=== PATIENT | male | born 1965 | race Caucasian/White ===

== ENCOUNTER 2024-11-04 09:35 | Inpatient (IN) ==
--- NOTE | 2024-11-04 10:14 | Emergency Department Note ---
Impression & Plan Bilateral pulmonary embolism, DVT (deep venous thrombosis) ED Provider Note NAME: KEENA ZHU AGE: 58 SEX: M : 1965 ARRIVES VIA: Walk-In INFORMANT: Patient, ED PROVIDER(S): Johny Tipton DO CHIEF COMPLAINT: Leg swelling HPI: The patient is a 58-year-old male who presented to the emergency department for an evaluation of leg swelling. The patient noticed left leg swelling and calf pain over the course of the last several days. He went [facility] and was sent to the emergency department for possible DVT. He denies having any near syncope. He denies having any chest pain or difficulty breathing. The patient has no history of venous thromboembolic disease. He has no history of cancer as far as he knows. He does not take any medications currently. ROS: See above HPI for pertinent positives & negatives. A total of 10 systems reviewed and were otherwise negative. PAST MEDICAL HISTORY: See Below PAST SURGICAL HISTORY: See Below FAMILY HISTORY: See Below SOCIAL HISTORY: See Below HOME MEDICATIONS: See Below ALLERGIES: See Below VITALS: See Below PHYSICAL EXAMINATION: GENERAL: Patient is awake alert in no acute distress patient is resting comfortably and showing no signs of anxiety EYES: The conjunctivae are clear. The pupils are round and reactive. EARS, NOSE, MOUTH AND THROAT: The nose is without any evidence of any deformity. NECK: The neck is nontender and supple. RESPIRATORY: Normal respiratory effort is noted there is no evidence of wheezing rhonchi or rales CARDIOVASCULAR: Tachycardic and regular heart sounds were noted to auscultation. There is no definite murmur. GASTROINTESTINAL: The abdomen is soft. Abdomen is nontender. MUSCULOSKELETAL/EXTREMITIES: There is no evidence of gross deformity full range of motion is noted in the hips and shoulders. SKIN: There is calf swelling and tightness noted on the left leg. There is tenderness in the left popliteal fossa. Skin is warm and dry. NEUROLOGIC: Patient is awake alert and oriented x3 MEDICAL DECISION MAKING: The patient is a 58-year-old male who presented to the emergency department for an evaluation of leg swelling. The patient noticed leg swelling over the course of the last several days. He was seen by his primary care physician but referred to the emergency department for an ultrasound. The patient was found to be tachycardic. He appeared to have some degree of hypoxia which was borderline but occurred with exertion. For this reason further laboratory and radiographic studies were obtained. The patient was noted to have filling defects on CT of the chest so heparin was ordered. I discussed the patient's laboratory and radiographic studies with him. [facility] have agreed to evaluate the patient in the emergency department for further management and disposition. Triage Nursing notes reviewed. Prior medical records reviewed Vital Signs: reviewed and remarkable for tachycardia. Differential diagnosis: DVT, musculoskeletal, infection, joint effusion, trauma, lymphedema, idiopathic, CHF, as well as other pathologies. ER treatment provided: See below Diagnostics interpreted by me: ECG: EKG was obtained in the emergency department. My interpretation is sinus tachycardia at 114 bpm. There was no ectopy. Nonspecific ST depression with T wave inversions were noted. No previous tracing was available. Cardiac Monitoring: An order was placed for continuous cardiac monitoring. The monitor shows a rate of 110 bpm with sinus rhythm. Laboratory studies: As stated above and show below. Imaging studies: See below. Radiographic imaging was reviewed by myself Consultation(s): I discussed this case with Dr. Farnsworth who is on-call for the [facility]. ED COURSE: Procedures: none Critical Care: I have personally spent greater than 35 minutes of critical care time in the direct management of this patient. This includes bedside care, interpretation of diagnostic studies, and testing, discussion with consultants, patient, and family members, and other required patient management activities. This 35 minutes is in excess of all separately billable procedures. Past Med/Surg History Problem List (Updated 11/04/24 @ 12:38 by Johny Tipton DO) DVT (deep venous thrombosis) (Acute) Bilateral pulmonary embolism (Acute) Social History Smoking Status: Never smoker Feels Safe at Home: Yes Allergies Allergies Allergy/AdvReac Type Severity Reaction Status Date / Time cat dander Allergy Unknown "chest Verified 11/04/24 12:17 tightness" dog dander Allergy Unknown "chest Verified 11/04/24 12:17 tightness" Home Meds Home Medications Medication Instructions Recorded Confirmed Glucosamine 1 tab PO DAILY 11/04/24 11/04/24 cholecalciferol (vitamin D3) 25 25 mcg PO DAILY 11/04/24 11/04/24 mcg (1,000 unit) tablet folic acid 1 mg tablet 1 mg PO DAILY 11/04/24 11/04/24 multivitamin with minerals 1 tab PO DAILY 11/04/24 11/04/24 Results & Data (ED) Vital Signs Vital Signs - 24 hr 11/04/24 09:43 Temperature 37 C Temperature Source Oral Pulse Rate 133 H Respiratory Rate 18 Respiratory Effort / Characteristics Non-Labored Respiratory Depth Normal Respiratory Pattern Regular Blood Pressure 125/84 Blood Pressure Mean 97 Pulse Oximetry 98 Oxygen Delivery Method Room Air Sepsis Recent Fever Within 48 Hours No Sepsis New/Unexplained Change in Mental Status N/A Sepsis Action Taken by Nursing No Action Required Home Medications Current Medication List: was personally reviewed by me Laboratory Data Attestation: I reviewed the patient's lab results. 11/04/24 10:17 11/04/24 10:17 Lab Results 11/04/24 11/04/24 Range/Units 10:17 10:19 WBC 9.24 (4.8-10.8) K/ul RBC 3.35 L (4.70-6.10) M/uL Hgb 13.5 L (14.0-18.0) g/dl POC Hgb 12.9 L (14.0-18.0) g/dl Hct 37.5 L (42.0-52.0) % POC Hct 38 L (42-52) % MCV 111.9 H (80.0-100.0) fL MCH 40.3 H (25.0-34.0) pg MCHC 36.0 (32.0-36.0) g/dL RDW Std Deviation 54.0 H (36.4-46.3) fL RDW Coeff of Toma 13.0 (11.5-14.5) % Plt Count 297 (130-400) K/uL MPV 8.9 L (9.4-12.4) fL Immature Gran % (Auto) 1.4 % Neut % (Auto) 62.2 % Lymph % (Auto) 21.2 % Morrison % (Auto) 13.9 % Eos % (Auto) 0.3 % Baso % (Auto) 1.0 % Neut # (Auto) 5.75 (1.40-6.50) K/uL Lymph # (Auto) 1.96 (1.20-3.40) K/uL Morrison # (Auto) 1.28 H (0.11-0.59) K/uL Eos # (Auto) 0.03 (0.00-0.50) K/uL Baso # (Auto) 0.09 (0.00-0.20) K/uL Immature Gran # (Auto) 0.13 (0.01-0.20) K/uL Polychromasia 1+ Macrocytosis Present PT 10.6 (9.0-12.0) Seconds INR 1.0 (0.9-1.1) APTT 25 (21-31) Seconds PTT Ratio 0.9 POC Sodium 139 (135-144) mmol/L Sodium 139 (136-145) mmol/L POC Potassium 3.4 (3.3-5.0) mmol/L Potassium 3.4 L (3.5-5.1) mmol/L POC Chloride 98 L (101-112) mmol/L Chloride 101 (98-107) mmol/L Carbon Dioxide 32 (21-32) mmol/L POC Total CO2 27 (24-31) mmol/L Anion Gap 6 (3-11) POC Anion Gap 17.0 (16-25) mmol/L POC BUN 8 (7-18) mg/dl BUN 9 (6-23) mg/dl Creatinine 0.60 (0.6-1.4) mg/dl POC Creatinine 0.6 (0.6-1.3) mg/dl Est Cr Clr Drug Dosing 126.7 ml/min eGFR 110.51 BUN/Creatinine Ratio 15.0 (10-20) Glucose 102 H (70-99(Fasting)) mg/dl POC Glucose (other) 103 H (70-99) mg/dl Calcium 8.6 (8.6-10.3) mg/dl POC Ioniz Calcium Bimal 1.10 L (1.12-1.32) mmol/l Iron 105 (35-175) mcg/dl TIBC 248 L (250-450) mcg/dl Transferrin 177 L (200-360) mg/dl Transferrin % Sat 42 (20-50) % Total Bilirubin 0.7 (0.2-1.0) mg/dl AST 41 H (13-39) U/L ALT 33 (7-52) U/L Alkaline Phosphatase 81 (34-104) U/L Troponin I High Sens 4.9 (0-20) pg/ml Total Protein 7.2 (6.0-8.3) gm/dl Albumin 3.2 L (3.4-5.0) gm/dl Globulin 4.0 (2.5-4.0) gm/dl Albumin/Globulin Ratio 0.8 L (0.9-2) Lipase 32 (11-82) U/L Vitamin B12 135 L (180-914) pg/ml Administered Medications Heparin Sodium/Dextrose (Heparin 96966 Unit/500 Ml D5w) 25,000 units in 500 mls @ 26 mls/hr IV .[id number] JESSICA; Protocol Stop: 11/05/24 09:00 Last Admin: 11/04/24 12:03 Dose: 1,300 units/hr, 26 mls/hr Documented By: LAKESHA Co-signed By: MINE Discontinued Medications Heparin Sodium (Porcine) (Heparin Sod (Porcine) 1000 Unit/Ml) 1 units IV NOW ONE Stop: 11/04/24 10:50 Last Admin: 11/04/24 12:03 Dose: 6,000 units Documented By: CEF Co-signed By: MINE Heparin Sodium/Dextrose (Heparin Iv Adult Wt-Based Standard W/ Initial Bolus Protocol) 1 each IV NOW STA; Protocol Stop: 11/04/24 10:34 Last Admin: 11/04/24 12:22 Dose: Not Given Documented By: CEF Ioversol (Optiray 320 125ml) 119 ml IV ONCE ONE Stop: 11/04/24 10:27 Last Admin: 11/04/24 10:26 Dose: 119 ml Documented By: TYLER Nicotine (Nicotine 21 Mg/24 Hr Tdsy) 1 patch TD NOW STA Stop: 11/04/24 12:20 Last Admin: 11/04/24 12:51 Dose: 1 patch Documented By: CEF Imaging Data Attestation: I personally reviewed and interpreted this imaging study as follows: My Impression: CT of the chest was obtained in the emergency department. My interpretation is bilateral filling defects consistent with PE. Final report below. Radiologist's Impression: Venous Doppler Study 11/04/24 10:07 LEFT LOWER EXTREMITY VENOUS DOPPLER HISTORY: [facility]: CT chest of same day FINDINGS: Subcutaneous edema. Extensive occlusive and partially occlusive acute appearing deep venous thrombi are noted within the lower extremity which involves the common femoral, superficial femoral, popliteal, posterior tibial, peroneal and anterior tibial veins. IMPRESSION: Extensive acute appearing DVT. ACT 112: Negative or not required by law. Electronically signed by: Howie Youngblood M.D. 11/04/2024 11:51 AM Chest CTA 11/04/24 10:10 CT angio chest PE protocol CT DOSE: 672.79 mGy.cm HISTORY: 58 years-old Male with PE. Acute shortness of breath TECHNIQUE: Multiple CTA images of the chest were obtained after the intravenous administration of 119 ml Optiray. Coronal and sagittal MIPS were obtained from the axial data set and were submitted for review. All measurements were obtained according to NASCET criteria. A dose lowering technique was utilized adhering to the principles of ALARA. COMPARISON: None. FINDINGS: CTA: Heart is upper limits of normal in size. No pericardial effusion. Normal thoracic aorta. Segmental and subsegmental pulmonary emboli are seen bilaterally, most pronounced in the left lung. Mild straightening of the intraventricular septum. No sagittal pulmonary embolus. CT CHEST: Unremarkable thyroid. No lymphadenopathy. No pneumothorax, pleural effusion or airspace consolidation/pulmonary infarct. There are no suspicious pulmonary nodules or masses. Minimal linear subpleural subsegmental consolidation within the lateral right midlung on image 102 series 4 suggestive of atelectasis versus scarring. Central airways are patent. Hepatic steatosis with hepatomegaly. Calcified granuloma of the hepatic dome. No acute fracture. IMPRESSION: 1. Bilateral segmental and subsegmental pulmonary emboli with evidence of right heart strain. 2. No pleural effusion or acute pulmonary infarct. ACT 112: Negative or not required by law. The above report was generated using voice recognition software. It may contain grammatical, syntax or spelling errors. Electronically signed by: Howie Youngblood M.D. 11/04/2024 10:55 AM Discharge Plan Visit Data Chief Complaint: Leg Injury/Pain Stated Complaint: L LEG PAIN/CALF KNEE ED Provider: Johny Tipton Discharge Problem: Bilateral pulmonary embolism, DVT (deep venous thrombosis) Patient Disposition: Being Evaluated by Hospitalist Forms Stand Alone Forms: [facility] Prescriptions Prescriptions: No Action folic acid 1 mg Tablet 1 mg PO DAILY multivitamin with minerals Tablet 1 tab PO DAILY cholecalciferol (vitamin D3) 25 mcg (1,000 unit) Tablet 25 mcg PO DAILY Glucosamine 1 tab PO DAILY Rx Instructions: strength not listed on list from [facility] Referrals Referrals: PCP,NO [Physician] - Discharge Problem: DVT (deep venous thrombosis) Qualifiers: DVT location: lower extremity Affected thrombotic vein of extremity: femoral C hronicity: acute Laterality: left Qualified Code(s): I82.412 - Acute embolism and thrombosis of left femoral vein
[2024-11-04] MEDS: OPTIRAY 320 125ml IV ONE (10:26)
[2024-11-04 10:31] LABS: iSTAT Creatinine 0.6 mg/dl (0.6-1.3); iSTAT Hemoglobin 12.9 g/dl (14.0-18.0); iSTAT Ionized Calcium 1.1 mmol/l (1.12-1.32); iSTAT Potassium 3.4 mmol/L (3.3-5.0)
[2024-11-04 10:48] LABS: Basophils # (auto) 0.09 K/uL (0.00-0.20); Eosinophils # (auto) 0.03 K/uL (0.00-0.50); Eosinophils % (auto) 0.3 %; Hematocrit (blood only) 37.5 % (42.0-52.0); Hemoglobin 13.5 g/dl (14.0-18.0); Immature Granulocytes # (auto) 0.13 K/uL (0.01-0.20); Immature Granulocytes % (auto) 1.4 %; Lymphocytes # (auto) 1.96 K/uL (1.20-3.40); Lymphocytes % (auto) 21.2 %; Mean Corpuscular Hemoglobin 40.3 pg (25.0-34.0); Mean Corpuscular Volume 111.9 fL (80.0-100.0); Mean Platelet Volume 8.9 fL (9.4-12.4); Monocytes # (auto) 1.28 K/uL (0.11-0.59); Monocytes % (auto) 13.9 %; Neutrophils # (auto) 5.75 K/uL (1.40-6.50); Neutrophils % (auto) 62.2 %; Platelet Count 297 K/uL (130-400); Red Blood Count 3.35 M/uL (4.70-6.10); White Blood Count 9.24 K/ul (4.8-10.8)
[2024-11-04 10:55] LABS: Albumin Globulin Ratio 0.8 (0.9-2); Albumin Level 3.2 gm/dl (3.4-5.0); Bilirubin,Total 0.7 mg/dl (0.2-1.0); Calcium 8.6 mg/dl (8.6-10.3); Creatinine Clr Calc Pharmacy 126.7 ml/min; Potassium 3.4 mmol/L (3.5-5.1); Total Protein 7.2 gm/dl (6.0-8.3)
--- NOTE | 2024-11-04 10:56 | CT Scan Report ---
CT angio chest PE protocol CT DOSE: 672.79 mGy.cm HISTORY: 58 years-old Male with PE. Acute shortness of breath TECHNIQUE: Multiple CTA images of the chest were obtained after the intravenous administration of 119 ml Optiray. Coronal and sagittal MIPS were obtained from the axial data set and were submitted for review. All measurements were obtained according to NASCET criteria. A dose lowering technique was u tilized adhering to the principles of ALARA. COMPARISON: None. FINDINGS: CTA: Heart is upper limits of normal in size. No pericardial effusion. Normal thoracic aorta. Segmental an d subsegmental pulmonary emboli are seen bilaterally, most pronounced in the left lung. Mild straight ening of the intraventricular septum. No sagittal pulmonary embolus. CT CHEST: Unremarkable thyroid. No lymphadenopathy. No pneumothorax, pleural effusion or airspace consolidation /pulmonary infarct. There are no suspicious pulmonary nodules or masses. Minimal linear subpleural mosley bsegmental consolidation within the lateral right midlung on image 102 series 4 suggestive of atelect asis versus scarring. Central airways are patent. Hepatic steatosis with hepatomegaly. Calcified granuloma of the hepatic dome. No acute fracture. IMPRESSION: 1. Bilateral segmental and subsegmental pulmonary emboli with evidence of right heart strain. 2. No pleural effusion or acute pulmonary infarct. ACT 112: Negative or not required by law. The above report was generated using voice recognition software. It may contain grammatical, syntax o r spelling errors. Electronically signed by: Howie Youngblood M.D. 11/04/2024 10:55 AM
[2024-11-04 11:00] LABS: Troponin I High Sensitivity 4.9 pg/ml (0-20)
[2024-11-04 11:04] LABS: Partial Thromboplastin Ratio 0.9; Partial Thromboplastin Time 25 Seconds (21-31); Prothrombin Time 10.6 Seconds (9.0-12.0)
[2024-11-04 11:32] LABS: Macrocytosis Present; Polychromasia 1+
--- NOTE | 2024-11-04 11:45 | History & Physical Report ---
Date of Service November 04, 2024 Assessment & Plan (1) Bilateral pulmonary embolism: Plan: Unprovoked DVT, bilateral PE Lower extremity Dopplers pending, suspect left leg DVT due to 1 week of left calf pain and swelling No hypotension, no saddle PE is noted ? Radiographic evidence of right heart strain. TTE ordered. Troponin is normal Continue heparin. Will transition to Eliquis 11/05/2024, pulmonary transition to loading dose 10 mg twice daily ordered and heparin to be discontinued at 9 AM if otherwise doing well Patient with tobacco use otherwise no clear provoking factors. Will need to be on anticoagulation for at minimum 3 months. No malignancy noted on CTA of the chest. No melena/hematochezia. Patient is scheduled for outpatient colonoscopy for colon cancer screening and recommend that he keep this Tobacco Use -Nicotine patch PRN Mild Macrocytic Anemia - Hgb 13.5, no bleeding/melena - Macrocytoic. +etoh use. thiamine/folic acid added. - Iron levels added -Outpatient colonoscopy is pending as noted No indication for transfusion DDx includes EtOH induced DVT PPx: anticoagulated Diet: Regular Dispo: M/T CODE: Full Code History of Present Illness Primary Care Provider: [facility] [address] Michael is a 58yo M with 1 week of swelling/pain in the left calf, dyspnea, and exertional dyspnea + hypoxia and who is found to have bilateral PE with radiographic evidence of RHS. trop normal. No hypotension, no saddle PE. Michael is seen at bedside. Tyro a knot behind his knee and pain in the LEFT calf. Called the [place] and was recommended to come to the ER. No injury, no trauma. No recent travel or long car rides. No history of DVT/PE. No family history of VTE/PE. No chest pain, no chest pressure No swelling in the RIGHT leg +shortness of breath walking around but more limited by pain in his leg, dyspnea is minimal. No dyspnea at rest. No lightheadedness, dizziness. No fevers, chills, or night sweats. Had a cold for a few weeks and some congestion negative viral tests, no PNA. +PND +weight loss ~5lbs over 2 months Has not had a colonoscopy yet. No bloody/black BMs Is scheduling for colonoscopy with the [place] Meds: Takes no medications Reports chronic dry cough in , no other problems and no chronic medical problems NKDA Chew tobacco, 1can every 2 days. No cigarette use ETOH 3-5 drinks every 3-5 days. Periodic etoh free days with no withdrawal sx Full Code Home Medications Medication Instructions Recorded Confirmed Type Glucosamine 1 tab PO DAILY 11/04/24 11/04/24 History cholecalciferol (vitamin D3) 25 25 mcg PO DAILY 11/04/24 11/04/24 History mcg (1,000 unit) tablet folic acid 1 mg tablet 1 mg PO DAILY 11/04/24 11/04/24 History multivitamin with minerals 1 tab PO DAILY 11/04/24 11/04/24 History Past Med/Surg History Problem List (Updated 11/04/24 @ 11:49 by Cordell Starks MD) Bilateral pulmonary embolism Social History Smoking Status: Never smoker Feels Safe at Home: Yes Physical Exam Physical Exam: General: A&Ox3. NAD. Cooperative. HEENT: Atraumatic, normocephalic. Vision/hearing grossly intact. Poor dentition. Pulm: CTAB A&P. -wheezes, -rales, -rhonchi. Symmetrical chest rise. No increased work of breathing. No respiratory distress. Cardiac: RRR, -mrg. Radial pulses intact and symmetrical. Abdominal: Nontender, nondistended, soft. BS present. Ext: LLE edema, swelling, calf tenderness. Results & Data Results & Data Vital Signs (Past 12 Hours) Vital Signs Temp Pulse Resp BP Pulse Ox O2 Del Method 11/04/24 09:43 37 C 133 H 18 125/84 98 Room Air PG Care Time/CCT Total # of Minutes Spent Total Time Spent with Patient: Total time spent is greater than 50% in coordination of care (as documented) at patient's floor/unit and/or counseling patient: Coding Level of Care Code 50837 INT INP/OBS CARE 3/75MIN Diagnoses Bilateral pulmonary embolism I26.99
--- NOTE | 2024-11-04 11:52 | Ultrasound Report ---
LEFT LOWER EXTREMITY VENOUS DOPPLER HISTORY: [facility]: CT chest of same day FINDINGS: Subcutaneous edema. Extensive occlusive and partially occlusive acute appearing deep venous thrombi are noted within the lower extremity which involves the common femoral, superficial femoral, popliteal, posterior tibial, peroneal and anterior tibial veins. IMPRESSION: Extensive acute appearing DVT. ACT 112: Negative or not required by law. Electronically signed by: Howie Youngblood M.D. 11/04/2024 11:51 AM
[2024-11-04] MEDS: HEPARIN SOD (PORCINE) 1000 UNIT/ML IV ONE (12:03)
[2024-11-04] MEDS: HEPARIN 25000 UNIT/500 ML D5W 25,000 UNITS/500 ML BAG IV SCH (12:03)
[2024-11-04] MEDS: Heparin IV Adult Wt-Based Standard w/ INITIAL Bolus Protocol IV STA (12:22)
[2024-11-04] MEDS: NICOTINE 21 MG/24 HR TDSY TD STA (12:51)
--- NOTE | 2024-11-04 13:52 | XCELERA ---
[id number]
[2024-11-04] MEDS ORDERED: ACETAMINOPHEN 325 MG TAB PO PRN (14:43)
--- NOTE | 2024-11-04 15:29 | Electrocardiogram Report ---
Test Reason : Blood Pressure : */* mmHG Vent. Rate : 114 BPM Atrial Rate : 114 BPM P-R Int : 132 ms QRS Dur : 78 ms QT Int : 334 ms P-R-T Axes : 41 23 -13 degrees QTcB Int : 460 ms Sinus tachycardia Abnormal ECG No previous ECGs available Confirmed by Johny Farias ([id number]) on 11/04/2024 3:28:53 PM Referred By: Confirmed By: Johny Farias
[2024-11-04] MEDS: FOLIC ACID 1 MG TAB PO SCH (15:38)
[2024-11-04] MEDS: CYANOCOBALAMIN (B-12) 100 MCG TABLET PO SCH (15:38)
[2024-11-04 15:58] LABS: Ferritin 1032.5 ng/ml (8-388)
[2024-11-04 19:15] LABS: ANTI-Xa, UFH(UnfractionatedHep 0.36 IU/ml (0.3-0.7)
[2024-11-05 01:36] LABS: ANTI-Xa, UFH(UnfractionatedHep 0.28 IU/ml (0.3-0.7)
[2024-11-05 06:34] LABS: Basophils # (auto) 0.07 K/uL (0.00-0.20); Basophils % (auto) 1.1 %; Eosinophils # (auto) 0.09 K/uL (0.00-0.50); Eosinophils % (auto) 1.4 %; Hemoglobin 12.7 g/dl (14.0-18.0); Immature Granulocytes # (auto) 0.08 K/uL (0.01-0.20); Immature Granulocytes % (auto) 1.2 %; Lymphocytes # (auto) 2.08 K/uL (1.20-3.40); Lymphocytes % (auto) 32.3 %; Mean Corpuscular Hemoglobin 40.3 pg (25.0-34.0); Mean Corpuscular Hgb Conc 36.3 g/dL (32.0-36.0); Mean Corpuscular Volume 111.1 fL (80.0-100.0); Mean Platelet Volume 9.1 fL (9.4-12.4); Monocytes # (auto) 0.87 K/uL (0.11-0.59); Monocytes % (auto) 13.5 %; Neutrophils # (auto) 3.24 K/uL (1.40-6.50); Neutrophils % (auto) 50.5 %; Platelet Count 289 K/uL (130-400); RDW Coefficient of Variation 12.7 % (11.5-14.5); Red Blood Count 3.15 M/uL (4.70-6.10); White Blood Count 6.43 K/ul (4.8-10.8)
[2024-11-05 06:58] LABS: Macrocytosis Present
[2024-11-05 07:04] LABS: BUN Creatinine Ratio 10.6 (10-20); Calcium 8.2 mg/dl (8.6-10.3); Creatinine Clr Calc Pharmacy 161.7 ml/min; Potassium 3.2 mmol/L (3.5-5.1)
[2024-11-05 07:27] VITALS: O2SAT 94
[2024-11-05] MEDS: CHOLECALCIFEROL 25 MCG (1000 UNITS) TAB PO SCH (07:48)
[2024-11-05] MEDS: CEROVITE ADV FORMULA TAB PO SCH (07:48)
[2024-11-05] MEDS: GLUCOSAMINE SULFATE 500 MG CAP PO SCH (07:48)
[2024-11-05] MEDS: NICOTINE 21 MG/24 HR TDSY TD SCH (07:49)
[2024-11-05 08:46] LABS: ANTI-Xa, UFH(UnfractionatedHep 0.29 IU/ml (0.3-0.7)
[2024-11-05 08:51] LABS: Magnesium 1.8 mg/dl (1.7-2.4)
[2024-11-05] MEDS ORDERED: APIXABAN 5 MG TABLET PO SCH ×3 (09:00→21:00)
[2024-11-05] MEDS ORDERED: FOLIC ACID 1 MG TAB PO SCH (09:00)
[2024-11-05] MEDS: POTASSIUM CHLORIDE CRTAB 20 MEQ TABCR PO STA (09:28)
[2024-11-05] MEDS: CYANOCOBALAMIN (B-12) 500 MCG TABLET PO SCH (09:28)
[2024-11-05] MEDS: POTASSIUM CHLORIDE 20 MEQ/15 ML UDC PO STA ×2 (10:33→16:49)
[2024-11-05] MEDS: ENOXAPARIN 80 MG/0.8 ML SYR SQ SCH (10:33)
[2024-11-05 11:47] VITALS: RESP 16
--- NOTE | 2024-11-05 15:53 | Discharge Summary ---
Discharge Summary Date of Service date of admission - November 04, 2024 date of discharge - November 05, 2024 Principal Dx & Hospital Course #1 = Principal Diagnosis (1) Bilateral pulmonary embolism: Patient presented with left leg pain, swelling, and dyspnea on exertion. LLE venous duplex study was positive for extensive DVT throughout most of the left leg venous system. CTA chest showed b/l segmental and subsegmental pulmonary emboli. This VTE event would be considered unprovoked. He reported no recent travel, no recent surgery, no recent COVID infection, no family history of VTE, etc. Further, he has had no recent diagnosis of malignancy. Although the radiologist commented there was evidence of right heart strain on CTA chest the patient's echocardiogram did not show findings to support such. Further, high-sensitivity troponin was very low at 4.9. During his stay he never was hypoxic and never required supplemental O2. He was started on heparin infusion in the ER. On hospital day #2 we contacted the [place] pharmacy to see if DOACs were [place]. We did confirm that the [place] indeed [place] Eliquis. Thus, patient was asked to take Eliquis as follows - * Eliquis 10mg PO BID x 7 days, then - * Eliquis 5mg PO BID thereafter As it was the weekend the patient was given a 3-day supply of Eliquis by our pharmacy, and we were also able to secure him some Eliquis samples. He was counseled that he must follow[place]up with the [place] in [facility] to obtain ongoing prescriptions for the Eliquis. Given the severity of the LLE DVT, the unprovoked nature of the event, etc. the patient may need to take Eliquis life-long. Will defer that final decision to his outpatient providers. At minimum he will need 6 months of Rx. The patient will need to have routine cancer screenings to exclude occult malignancy as the cause of his VTE event. Consider colonoscopy, prostate ca testing, potentially EGD, potentially CT abd/pelvis, etc. in order to complete the work-up. The patient was counseled extensively to limit or to abstain from all forms of etoh in light of taking Eliquis. He was also asked to avoid NSAIDs. (2) DVT (deep venous thrombosis): Extensive DVT throughout the majority of the LLE venous system as noted Rx - Eliquis as above (3) B12 deficiency: Vitamin B12 level = 135 (normal >180) Recommended oral vitamin B12 1000mcg daily x 6 months Folic acid level was low-normal at 6.99 Recommend 1 month of folic acid 1mg daily (4) Alcohol dependence: Counseled to abstain from alcohol if at all possible in light of Eliquis usage, etc. f/u with PCP for ongoing efforts Could consider Naltrexone therapy (5) Tobacco dependence: Counseled to quit Smoking cessation handouts given Notes For Next Care Provider Medication Changes From Visit Eliquis 10mg BID x 7 days, then 5mg BID thereafter - potentially lifelong Vitamin B12 1000mcg daily x 6 months Folic acid 1mg daily x 1 month Admission HPI Per Admitting Provider Michael is a 58yo M with 1 week of swelling/pain in the left calf, dyspnea, and exertional dyspnea + hypoxia and who is found to have bilateral PE with radiographic evidence of right heart strain. trop normal. No hypotension, no saddle PE. Michael is seen at bedside. [place] a knot behind his knee and pain in the LEFT calf. Called the [place] and was recommended to come to the [place]. No injury, no trauma. No recent travel or long car rides. No history of DVT/PE. No family history of VTE/PE. No chest pain, no chest pressure No swelling in the RIGHT leg +shortness of breath walking around but more limited by pain in his leg, dyspnea is minimal. No dyspnea at rest. No lightheadedness, dizziness. No fevers, chills, or night sweats. Had a cold for a few weeks and some congestion negative viral tests, no PNA. +PND +weight loss ~5lbs over 2 months Has not had a colonoscopy yet. No bloody/black BMs Is scheduling for colonoscopy with the [place] Meds: Takes no medications Reports chronic dry cough in July, no other problems and no chronic medical problems NKDA Chew tobacco, 1can every 2 days. No cigarette use ETOH 3-5 drinks every 3-5 days. Periodic etoh free days with no withdrawal sx Full Code Discharge Exam gen - NAD, no signs of etoh withdrawal, no respiratory distress neck - no JVD mouth - MMM heart - RRR, s1 s2, no murmur lungs - CTA b/l abd - soft NT ND BS+ ext - left leg/calf is larger than right leg, trace to <1+ edema LLE vascular - pulses b/l feet 2+ psych - a/o x 3 Discharge Plan Discharge Items Patient Disposition: Home - Self-Care Reason For Visit: Shortness of breath Discharge Diagnosis: 1. bilateral pulmonary emboli 2. left leg extensive DVTs 3. vitamin B12 deficiency (level = 135) Activity: As commented below Activity Comment: No strenuous activities until cleared by your [place] family doctor Sexual Activity: Wait until after follow-up appointment Exercise/Sports: Wait until after follow-up appointment Non-emergency contact: Primary Care Provider Call non-emergency contact if: you have any medication questions and your symptoms worsen Follow-up/Referrals: [facility] [Primary Care Provider] - (see Dr Sheldon Contreras - [facility] - THIS WEEK) Diet: Regular Addtl Attending Provider Instructions: Mr Beverly, You were hospitalized due to the discovery of left leg DVT blood clots as well as blood clots in the lungs (pulmonary emboli). The pulmonary emboli blood clots originate in the leg and travel through the circulation. They then deposit themselves in the lungs. Once in the lungs they cannot travel anywhere else. The body naturally tries to dissolve the clots in the leg and lungs over time. To prevent the existing clots from getting worse and to prevent the development of NEW clots you will need to take oral blood thinner. Your blood thinner is ELIQUIS. You will have to take the ELIQUIS for at least 6 months, potentially life-long. At this time it is uncertain what caused the DVT and pulmonary emboli blood clots. Risk factors for DVT/pulmonary emboli include recent surgery, prolonged immobility (long plane ride, train ride, car ride OR immobility due to medical conditions), underlying cancer, underlying autoimmune diseases, recent COVID infection, genetic factors that you can inherit from your mother or father, and other diseases that cause inflammation throughout the body. It does not appear that you have any of these conditions, but the [place] will likely recommend additional testing in the near-future (upper endoscopy, colonoscopy, prostate blood test/PSA test, etc). It is important to avoid the following while taking Eliquis - * alcohol * anti-inflammatory medicines such as aspirin, motrin, ibuprofen, aleve, naprosyn IT IS OK to take [id number] tylenol as needed for aches/pains. Of note - we checked an echocardiogram and your heart function is normal. The blood clots have had no effect on your heart function. You will notice for a few weeks that you are short of breath doing activity. This is due to the blood clots of the lungs. The shortness of breath will gradually go away. The mild swelling in the left leg may linger for quite some time. In some cases of DVT blood clots the swelling never fully resolves. Recommendations - 1. Starting the evening of 11/05/24 (9-10pm or so) -- * take TWO 5mg tablets (total 10mg) of Eliquis twice daily * you will take 10mg twice daily x 7 days until the morning of 11/12/24 * after the initial 7 days you will LOWER the dose to 5mg twice daily; then stay on this dose unless otherwise instructed * we have provided a supply of Eliquis until the [place] system can get you a full month or longer (samples of Eliquis, as well as a 3-day supply from our pharmacy) 2. Take emfx-www-laqkzym vitamin B12 1000mcg (1mg) daily for 6 months 3. Please abstain from alcohol if at all possible 4. Contact the [place] in [place] this [place]07/24, to discuss getting an ongoing prescription for the Eliquis 5. Please talk to your [place] doctor about getting help with smoking cessation Additional instructions regarding Eliquis - Your DVT / pulmonary emboli blood clot condition is typically treated with an anticoagulant ("blood thinner"). Anticoagulants will thin your blood to help prevent new clots. * You should take your medication exactly as directed. * Never skip a dose. * Never take a double dose. If you miss a dose, take it as soon as you remember. Call your Primary Care doctor if you experience any of the following: * Swelling or Pain in your leg * Sudden, continuous pain deep in a muscle * Pain that worsens when you are active or when you stand still for a long time * Chest Pain * Sudden Shortness of Breath * Rapid or pounding heart beat * Fainting * Dizziness * Cough with blood or bloody sputum * Sweating more than normal * Bruises * Heavy or uncontrolled bleeding * Blood in your urine, stool or vomit * Black or tarry stools * Heavy nose bleeds Caring for Your Self at Home: * Avoid sitting, standing or lying down for long periods without moving your legs and feet * When traveling by car, stop to get out and move around at least once every 3 hours * On long airplane, train or bus rides, get up and move around when possible * If you can't get up, wiggle your toes and tighten your calves to keep your blood moving * When shaving please use an ELECTRIC SHAVER rather than a traditional razor; using an electric shaver has less risk of cuts and bleeding Follow-up - call the [place] [facility] in [place] on Tuesday 11/07 or Wednesday 11/08 to obtain your Eliquis; I will be [facility]ing your [facility] showing them the details of your hospital stay Return to [facility] if - * you have bleeding from any location as noted above * you have worsening shortness of breath * you have chest pains * you feel dizzy or lightheaded * any other concerns It was our pleasure caring for you! Pending Studies at Discharge: No Stand-Alone Forms: My [facility], Smoking Cessation Medications and DC Order Prescriptions: New Eliquis 5 mg tablet 5 mg PO DIRECTED Qty: 70 0RF Rx Instructions: 2 tabs PO BID x 7 days, then 1 tab PO BID thereafter. cyanocobalamin (vitamin B-12) 1,000 mcg tablet 1,000 mcg PO DAILY Qty: 30 5RF Rx Instructions: purchase [id number] Continued folic acid 1 mg Tablet 1 mg PO DAILY multivitamin with minerals Tablet 1 tab PO DAILY cholecalciferol (vitamin D3) 25 mcg (1,000 unit) Tablet 25 mcg PO DAILY Glucosamine 1 tab PO DAILY Rx Instructions: strength not listed on list from [place] Discharge Orders: Discharge Order (Routine); Ordered 11/05/24 Ordered By: Donnie Fuentes/Other Patient Handouts: Apixaban Oral Tablet, Understanding Deep Vein Thrombosis, Pulmonary Embolism, Smoking Get Help to Quit Admission Data Admit Date/Time: 11/04/24 12:03 Attending Provider: Donnie Ontiveros Admit Provider: Cordell Satrks Primary Care Provider: [facility] Other Providers: Cordell Starks Other Interventions: Discharge Summary Assessment (RN) Last Done: 11/05/24 16:23 Hospital Stay Data Procedures Performed Echocardiogram: EF 60-65%, normal LV wall motion; normal RV function; no pulmonary HTN; normal valve function Diagnostic Imagining Performed Venous Doppler Study 11/04/24 10:07 LEFT LOWER EXTREMITY VENOUS DOPPLER HISTORY: [facility]: CT chest of same day FINDINGS: Subcutaneous edema. Extensive occlusive and partially occlusive acute appearing deep venous thrombi are noted within the lower extremity which involves the common femoral, superficial femoral, popliteal, posterior tibial, peroneal and anterior tibial veins. IMPRESSION: Extensive acute appearing DVT. ACT 112: Negative or not required by law. Electronically signed by: Howie Youngblood M.D. 11/04/2024 11:51 AM Chest CTA 11/04/24 10:10 CT angio chest PE protocol CT DOSE: 672.79 mGy.cm HISTORY: 58 years-old Male with PE. Acute shortness of breath TECHNIQUE: Multiple CTA images of the chest were obtained after the intravenous administration of 119 ml Optiray. Coronal and sagittal MIPS were obtained from the axial data set and were submitted for review. All measurements were obtained according to NASCET criteria. A dose lowering technique was utilized adhering to the principles of ALARA. COMPARISON: None. FINDINGS: CTA: Heart is upper limits of normal in size. No pericardial effusion. Normal thoracic aorta. Segmental and subsegmental pulmonary emboli are seen bilaterally, most pronounced in the left lung. Mild straightening of the intraventricular septum. No sagittal pulmonary embolus. CT CHEST: Unremarkable thyroid. No lymphadenopathy. No pneumothorax, pleural effusion or airspace consolidation/pulmonary infarct. There are no suspicious pulmonary nodules or masses. Minimal linear subpleural subsegmental consolidation within the lateral right midlung on image 102 series 4 suggestive of atelectasis versus scarring. Central airways are patent. Hepatic steatosis with hepatomegaly. Calcified granuloma of the hepatic dome. No acute fracture. IMPRESSION: 1. Bilateral segmental and subsegmental pulmonary emboli with evidence of right heart strain. 2. No pleural effusion or acute pulmonary infarct. ACT 112: Negative or not required by law. The above report was generated using voice recognition software. It may contain grammatical, syntax or spelling errors. Electronically signed by: Howie Youngblood M.D. 11/04/2024 10:55 AM Pending Results Patient Have Any Pending Studies at Discharge: No Discharge Instructions Given to Patient (Per Discharging Provider) Mr Beverly, You were hospitalized due to the discovery of left leg DVT blood clots as well as blood clots in the lungs (pulmonary emboli). The pulmonary emboli blood clots originate in the leg and travel through the circulation. They then deposit themselves in the lungs. Once in the lungs they cannot travel anywhere else. The body naturally tries to dissolve the clots in the leg and lungs over time. To prevent the existing clots from getting worse and to prevent the development of NEW clots you will need to take oral blood thinner. Your blood thinner is ELIQUIS. You will have to take the ELIQUIS for at least 6 months, potentially life-long. At this time it is uncertain what caused the DVT and pulmonary emboli blood clots. Risk factors for DVT/pulmonary emboli include recent surgery, prolonged immobility (long plane ride, train ride, car ride OR immobility due to medical conditions), underlying cancer, underlying autoimmune diseases, recent COVID infection, genetic factors that you can inherit from your mother or father, and other diseases that cause inflammation throughout the body. It does not appear that you have any of these conditions, but the [facility] will likely recommend additional testing in the near-future (upper endoscopy, colonoscopy, prostate blood test/PSA test, etc). It is important to avoid the following while taking Eliquis - * alcohol * anti-inflammatory medicines such as aspirin, motrin, ibuprofen, aleve, naprosyn IT IS OK to take onkr-rla-yjcdoik tylenol as needed for aches/pains. Of note - we checked an echocardiogram and your heart function is normal. The blood clots have had no effect on your heart function. You will notice for a few weeks that you are short of breath doing activity. This is due to the blood clots of the lungs. The shortness of breath will gradually go away. The mild swelling in the left leg may linger for quite some time. In some cases of DVT blood clots the swelling never fully resolves. Recommendations - 1. Starting the evening of 11/05/24 (9-10pm or so) -- * take TWO 5mg tablets (total 10mg) of Eliquis twice daily * you will take 10mg twice daily x 7 days until the morning of 11/12/24 * after the initial 7 days you will LOWER the dose to 5mg twice daily; then stay on this dose unless otherwise instructed * we have provided a supply of Eliquis until the [facility] can get [facility] a full [facility] or longer (samples of Eliquis, as well as a 3-day supply from our pharmacy) 2. Take gghl-olc-dotmjyh vitamin B12 1000mcg (1mg) daily for 6 months 3. Please abstain from alcohol if at all possible 4. Contact the [place] in [place] this [place]07/24, to discuss getting an ongoing prescription for the Eliquis 5. Please talk to your [place] doctor about getting help with smoking cessation Additional instructions regarding Eliquis - Your DVT / pulmonary emboli blood clot condition is typically treated with an anticoagulant ("blood thinner"). Anticoagulants will thin your blood to help prevent new clots. * You should take your medication exactly as directed. * Never skip a dose. * Never take a double dose. If you miss a dose, take it as soon as you remember. Call your Primary Care doctor if you experience any of the following: * Swelling or Pain in your leg * Sudden, continuous pain deep in a muscle * Pain that worsens when you are active or when you stand still for a long time * Chest Pain * Sudden Shortness of Breath * Rapid or pounding heart beat * Fainting * Dizziness * Cough with blood or bloody sputum * Sweating more than normal * Bruises * Heavy or uncontrolled bleeding * Blood in your urine, stool or vomit * Black or tarry stools * Heavy nose bleeds Caring for Your Self at Home: * Avoid sitting, standing or lying down for long periods without moving your legs and feet * When traveling by car, stop to get out and move around at least once every 3 hours * On long airplane, train or bus rides, get up and move around when possible * If you can't get up, wiggle your toes and tighten your calves to keep your blood moving * When shaving please use an ELECTRIC SHAVER rather than a traditional razor; using an electric shaver has less risk of cuts and bleeding Follow-up - call the [place] [facility] in [place] on Tuesday 11/07 or Wednesday 11/08 to obtain your Eliquis; I will be faxing your records to your [place] doctor showing them the details of your hospital stay Return to [facility] if - * you have bleeding from any location as noted above * you have worsening shortness of breath * you have chest pains * you feel dizzy or lightheaded * any other concerns It was our pleasure caring for you! Total Time Total Time Spent Total Time Spent (In Minutes): 60 Coding Level of Care Code 19307 INP/OBS DISCH >30 MIN Diagnoses Bilateral pulmonary embolism I26.99 DVT (deep venous thrombosis) I82.412 Affected thrombotic vein of extremity: femoral Chronicity: acute DVT location: lower extremity Laterality: left B12 deficiency E53.8 Alcohol dependence F10.20 Tobacco dependence F17.200
[2024-11-05 15:58] VITALS: BP 148/84; TEMP 98.2
[2024-11-05 16:24] VITALS: PULSE 93
== END 2024-11-05 17:07 | disposition home or self-care (01) | DRG 299 ==
LOC: ED 09:35 → EDINP 12:03 → SUATTDRO 12:03 → EDINP 17:29 → 2W 18:29